=== PATIENT | female | born 1970 | race Two or more races ===

== ENCOUNTER 2023-03-25 09:00 | Outpatient (OUT) | payer OTHER, SELFPAY ==
--- NOTE | 2023-03-25 09:40 | CONS_ITS ---
CONSULTATION DATE: ??03/25/2023 TO:? Mike Alcaraz M.D. CHIEF COMPLAINT:? Includes bilateral buttock pain, hip pain. HISTORY:? She reports the pain as being 3-7/10, sharp/burning in character, increased with activities such as standing, walking and performing transitioning maneuvers. She feels most comfortable in the semi-recumbent position.? Denies any change in bowel and bladder habits or new sensorimotor changes in the lower extremities. EXAM:? Notable for patient having no clinical radiculopathy or myelopathy involving the lower extremities.? Patient had dysesthesia and hyperesthesia along the distribution of the lateral cutaneous branch of the iliohypogastric nerve, worse on the right than the left side, and severe myofascial spasm involving the gluteus medius muscle, worse on the right than the left side.? IMPRESSION:? 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 She has undergone a diagnostic injection of the lateral cutaneous branch of the iliohypogastric nerve under fluoroscopic guidance.?? She reports her pain was improved by 100% during the immediate post procedural period, lasting for several hours, with recurrence of pain back to her baseline.?? RECOMMENDATIONS:? I have recommended proceeding with a rhizotomy using radiofrequency ablation of the lateral cutaneous branch of the iliohypogastric nerve, starting on the right side initially, and proceeding with the contralateral side approximately one week later.? I have asked her to restart her baclofen as ordered previous visit.? As part of providing excellent, safe, comprehensive care, the following was completed at our patient's visit: 1. A medication reconciliation and review to ensure accurate knowledge of current/active medications, including asking our patients to inform us about any hiud-tbh-zblkblf medications or herbal remedies/nutritional supplements/alternative remedies. 2. A review to specifically ensure our patients have had annual screening for: elevated body mass index (BMI, see intake chart for exact total), tobacco use, screening for depression, and screening for unhealthy alcohol use.? When screening is concerning, patients are provided with education and the specific recommendation to discuss the concerning health issue and treatment options with their primary care provider. BEE
== END 2023-03-25 09:01 ==
PROVIDERS: PCP Nurse Practitioner Family; Visit Provider Anesthesiology Pain Medicine
DX: M25.552 Pain in left hip (principal); M25.551 Pain in right hip; G89.29 Other chronic pain; M79.18 Myalgia, other site
CPT/HCPCS: G0463

== ENCOUNTER 2023-08-20 09:31 | Outpatient (OUT) | payer OTHER, SELFPAY ==
[2023-08-20 09:51] LABS: Basophils Percent Auto 0.7 % (0.2-2.0); Eosinophils Absolute Auto 0.2 10^3/uL (0.0-0.7); Eosinophils Percent Auto 3.4 % (0.9-7.0); Hematocrit 41.6 % (36.0-48.0); Hemoglobin 13.4 g/dL (12.0-16.0); Immature Granulocytes Abs Auto 0.04 10^3/uL (0.00-0.03); Immature Granulocytes Pct Auto 0.7 % (0.0-0.5); Lymphocytes Absolute Auto 1.4 10^3/uL (1.2-3.8); Mean Corpuscular HGB Conc 32.2 g/dL (29.9-35.2); Mean Corpuscular Hemoglobin 29.4 pg (26.7-34.0); Mean Corpuscular Volume 91.2 fL (81.0-99.0); Mean Platelet Volume 10.4 fL (9.5-13.5); Monocytes Absolute Auto 0.4 10^3/uL (0.3-0.8); Monocytes Percent Auto 6.8 % (1.7-12.0); Neutrophils Percent Auto 65.4 % (43.0-75.0); Platelet Count 292 10^3/uL (150-450); Red Blood Count 4.56 10^6/uL (4.20-5.40); Red Cell Distribution Width 13.2 % (11.0-15.0); White Blood Count 6.1 10^3/uL (4.0-11.0)
[2023-08-20 10:30] LABS: Estimated Average Glucose 103 mg/dL; Glycohemoglobin A1C 5.2 % (4.5-6.2)
[2023-08-20 11:34] LABS: Alanine Aminotransferase 53 U/L (14-59); Albumin Globulin Ratio 1.1; Albumin Level 3.8 g/dL (3.4-5.0); Alkaline Phosphatase 76 U/L (46-116); Anion Gap 14.6; Aspartate Amino Transferase 35 U/L (15-37); BUN Creatinine Ratio 17.2; Bilirubin Total 0.4 mg/dL (0.2-1.0); Calcium 9.2 mg/dL (8.5-10.1); Carbon Dioxide 27.3 mmol/L (21.0-32.0); Chloride 104 mmol/L (98-107); Chol HDL Ratio 2.7; Cholesterol 197 mg/dL (<=200); Estimated GFR (African America >60 (>=60); Estimated GFR (Non-African Ame >60 (>=60); Free T3 2.72 pg/mL (2.18-3.98); Globulin 3.4 g/dL; Glucose 98 mg/dL (74-106); HDL Cholesterol 74 mg/dL (40-60); Potassium 3.9 mmol/L (3.5-5.1); Sodium 142 mmol/L (136-145); Thyroid Stimulating Hormone 1.469 uIU/mL (0.358-3.740); Total Protein 7.2 g/dL (6.4-8.2); Triglycerides 59 mg/dL (<=150); VLDL CHOLESTEROL 11.8 mg/dL
[2023-08-21 11:09] LABS: Insulin 17.4 uIU/mL (2.6-24.9)
== END 2023-08-20 09:32 | disposition home or self-care (01) ==
LOC: LAB 09:35
PROVIDERS: PCP Nurse Practitioner Family; Visit Provider Nurse Practitioner Family
DX: Z00.00 Encounter for general adult medical examination without abnormal findings (principal)
CPT/HCPCS: 36415; 80053; 80061; 82306; 83036; 83525; 83540; 84436; 84443; 84481; 85025

== ENCOUNTER 2023-10-11 10:45 | Emergency (ER) | payer OTHER, SELFPAY ==
[2023-10-11] VITALS (29 sets, daily range): BP systolic 124–173; BP diastolic 76–105; PULSE 73–107; RESP 15–33; TEMP 36.6; O2SAT 95–100; BMI 34.3
--- NOTE | 2023-10-11 11:15 | ED_ITS ---
HPI - Arrhythmia/Palpitations General Chief Complaint: Arrhythmia/Palpitations Stated Complaint: CHEST PAIN/TIGHTNESS Time Seen by Provider: 10/11/23 11:15 Source: patient Mode of arrival: walk-in Limitations: no limitations History of Present Illness HPI narrative: patient here for evaluation of a increase in her heart rate. She's got some monitoring devices at home and has been up as high as a hundred twenty-five but never any faster than that. She is on Adipex for weight loss since last January. She is also on lisinopril. She's not had a shortness of breath or dyspnea with exertion. No leg swelling no previous history of deep vein thrombosis pulmonary embolism or coronary disease. Does not have any heaviness or heartburn in her chest. She is not on any other stimulants such as cough medicines or other we ight loss pills. Denies tobacco use or illicit drug use. Not had a stress test done or Holter monitoring. Related Data Home Medications Medication Instructions Recorded Confirmed baclofen 10 mg tablet 10 mg PO BID 03/26/23 10/11/23 gabapentin 300 mg capsule 300 mg PO BID 03/26/23 10/11/23 lisinopril 10 mg tablet 20 mg PO DAILY 03/26/23 10/11/23 oxaprozin 600 mg tablet 600 mg PO BID 03/26/23 10/11/23 phentermine 37.5 mg capsule 37.5 mg PO DAILY 03/26/23 10/11/23 Allergies Allergy/AdvReac Type Severity Reaction Status Date / Time No Known Drug Allergies Allergy Verified 10/11/23 10:50 [facility] Social History Smoking status: Never smoker Exam Narrative Exam Narrative: awake alert well-hydrated well-nourished does not appear ill. Her skin is warm and dry not clammy or diaphoretic. Oxygen saturation one hundred percent blood pressure noted and her respiratory rates eighteen. Heart rate on her 12-lead EKG is ninety-three. Her EKG is noted bullosa sinus rhythm. Well-hydrated well-nourished no scleral icterus or evidence of pallor or anemia. Lungs are clear with no wheezes rales or rhonchi there is no cough or congestion Chest examination shows heart rate and rhythm be normal with no clicks rubs gallops or murmurs. Lower extremities do not have any evidence of edema , phlebitis ,swelling or tenderness. Constitutional Vital Signs, click to edit/add: Last Vital Signs Temp 97.8 F 10/11/23 10:50 Pulse 95 H 10/11/23 11:01 Resp 18 10/11/23 11:01 BP 153/91 H 10/11/23 11:01 Pulse Ox 100 10/11/23 11:01 O2 Del Method Room Air 10/11/23 10:50 Course Vital Signs Vital signs: Vital Signs Temperature 97.8 F 10/11/23 10:50 Pulse Rate 107 H 10/11/23 10:50 Respiratory Rate 18 10/11/23 10:50 Blood Pressure 173/105 H 10/11/23 10:50 Pulse Oximetry 100 10/11/23 10:50 Oxygen Delivery Method Room Air 10/11/23 10:50 Temperature 97.8 F 10/11/23 10:50 Pulse Rate 95 H 10/11/23 11:01 Respiratory Rate 18 10/11/23 11:01 Blood Pressure 153/91 H 10/11/23 11:01 Pulse Oximetry 100 10/11/23 11:01 Oxygen Delivery Method Room Air 10/11/23 10:50 MDM - Arrhythmia/Palpitations MDM Narrative Medical decision making narrative: this patient presents with history of tachycardia. Heart rate is been just below one hundred. Twelve-lead EKG showed sinus rhythm. Screening labs showed a negative d negative troponin.and a negative d-dimer. We did give her one dose of beta nataliia and she responded very nicely. I see no indication this is a cardiac problem.I have run a screening thyroid-stimulating hormone. Discharge Plan Discharge Chief Complaint: Arrhythmia/Palpitations Clinical Impression: Arrhythmia Patient Disposition: Home, Self-Care Time of Disposition Decision: 13:42 Prescriptions / Home Meds: No Action baclofen 10 mg tablet 10 mg PO BID Patient Comments: 1/2 - 1 tab bid gabapentin 300 mg capsule 300 mg PO BID lisinopril 10 mg tablet 20 mg PO DAILY phentermine 37.5 mg capsule 37.5 mg PO DAILY Rx Instructions: must administer 30 minutes before or 1-2 hours after breakfast oxaprozin 600 mg tablet 600 mg PO BID Additional Instructions: follow-up with Dr. Alcaraz as needed. We will call you a thyroid test is abnormal Stand Alone Forms: Portal Instructions Referrals: KACI BOSWELL [Primary Care Provider] - 1 week
--- NOTE | 2023-10-11 11:17 | ECG_ITS ---
[facility] Test Date: 2023-10-11 Pat Name: YAMILETH MEJIA Department: Room: - Gender: Female [employer]: : 1970 Requested By: KACI BOSWELL Order Number: [id number] Reading MD: NITESH TAVERAS Measurements Intervals [place] Rate: 93 P: 60 ID: [id number] QRS: 59 QRSD: 74 T: 42 QT: 356 QTc: 407 Interpretive Statements 1100 Sinus rhythm 9110 normal ECG No previous ECG available for comparison Electronically Signed On 10-12-2023 5:33:24 EST by NITESH TAVERAS
--- OUTSIDE RECORDS SUMMARY | 2023-10-11 11:20 | XMS_ITS | CCD ---
Author Name Unknown Address [address] [place] [id number] Organization [facility] Care Team Providers Care Community Outreach Coordinator Name Role Phone LAKSHMIPATHY ., NARENDRANATH Admitting Dotty vailable LAKSHMIPATHY ., NARENDRANATH Consulting Dotty vailable LAKSHMIPATHY ., NARENDRANATH Attending Dotty KACI Noriega Primary Care Unavailable KACI BOSWELL Attending Unavailable DR HUA GIRALDO Consulting Unavailable KACI BOSWELL Admitting Unavailable KACI BOSWELL Primary Care Unavailable KACI BOSWELL Consulting Unavailable LAKSHMIPATHY ., NARENDRANATH Admitting Dotty vailable LAKSHMIPATHY ., NARENDRANATH Consulting Dotty vailable LAKSHMIPATHY ., NARENDRANATH Attending Dotty KACI Noriega Primary Care Unavailable Problems Active Problems Problem Classification Problem Date Documented Date Episodic/Chronic Abdominal pain (4 sources) Unspecified abdominal pain; Translations: [UNSPECIFIED ABDOMINAL PAIN] Onset: 02-23-2023 Episodic Other connective tissue disease (1 source) Other muscle spasm; Translations: [OTHER MUSCLE SPASM] Onset: 02-11-2023 Episodic Other nervous system disorders (4 sources) Other specified mononeuropathies of bilateral lower limbs; Translations: [OTH SPEC MONONEUROPATH KATHERINE LOW LIMB] Onset: 03-02-2023 Chronic Other nervous system disorders (1 source) Other chronic pain; Translations: [OTHER CHRONIC PAIN] Onset: 02-11-2023 Chronic Other nervous system disorders (1 source) Other specified mononeuropathies; Translations: [OTHER SPECIFIED MONONEUROPATHIES] Onset: 02-11-2023 Chronic Spondylosis; intervertebral disc disorders; other back problems (1 source) Spondylosis without myelopathy or radiculopathy, lumbosacral region; Translations: [SPONDYLS W/O MYELO-/RADICULOP LS] Onset: 02-11-2023 Chronic Unclassified (2 sources) LOW BACK PAIN, UNSPECIFIED; Translations: [LOW BACK PAIN, UNSPECIFIED] Onset: 02-11-2023 Past or Other Problems Problem Classification Problem Date Documented Da te Episodic/Chronic Unclassified (1 source) LOW BACK PAIN, UNSPECIFIED; Translations: [LOW BACK PAIN, UNSPECIFIED] Onset: 02-04-2023 Results Test Name Value Interpretation Reference Range Facil ity PREG HCG QUALon 03-02-2023 , QUAL Negative Normal NEGATIVE [facility] Comment on above: Performed By: #### PREG #### [facility] [address] [address] [address] Noemi Rosario XR KUB 1 VIEWon 02-24-2023 XR KUB 1 VIEW EXAMINATION: XR KUB 1 VIEW HISTORY: Abdominal pain , left flank pain COMPARISON: No relevant comparison available. FINDINGS: KIDNEY/URETER - RIGHT: No visible renal or ureteral calcifications. KIDNEY/URETER - LEFT: No visible renal or ureteral calcifications. PELVIS: No visible ureteral stones. BOWEL: No abnormal dilation or deviation. BONES: No acute abnormality. OTHER: Negative. No abnormal gaseous collections. IMPRESSION: 1. No appreciable urinary tract calculi. 2. Normal bowel gas pattern. Electronically authenticated by: HUA GIRALDO Date: 2023-02-24 06:58 Normal [facility] Encounters Encounter Date Encounter Type Care Provider Facility Start: 03-02-2023 End: 03-02-2023 ambulatory NARENDBETTEATH LAKCARLOSMIPATHY . Facility:[facility] Start: 02-23-2023 End: 02-24-2023 ambulatory KACI BOSWELL Facility:[facility] Start: 02-04-2023 End: 02-05-2023 ambulatory NARENDRANATH LAKSHMIPATHY . Facility:[facility] Payers Date Payer Category Payer Unknown [id number] 2.16.84 [id number] 1970 Unknown [id number] [id number] [id number] 1970 Unknown [id number] 2.16.84 [id number] 1958 Self-pay [id number] 1958 Unknown [id number] Consultation note 02-04-2023 Note Date & Type Note Facility 02-04-2023 Note CONSULTATION CONSULTATION DATE: 02/04/2023 TO: Mike Alcaraz M.D. CHIEF COMPLAINT: Includes severe bilateral lower back pain, most on the right than the left side. HISTORY: She reports this pain started approximately two years ago. It occurred spontaneously and increased gradually to its present state, which she now complains of 5-7/10 pain, sharp in character, increased with activities such as standing, walking and performing transitioning maneuvers. She also reports that she has sensitivity to even light touch over her hip and buttock area, more significant on the right than the left side. She feels most comfortable in the semi-recumbent position. She denies any change in bowel and bladder habits or new sensorimotor changes in the lower extremities. EXAM: Her examination is notable for patient having no clinical radiculopathy or myelopathy involving her lower extremities. Patient did have dysesthesia and hypoesthesia overlying the distribution of the lateral cutaneous branch of the iliohypogastric nerve, more significant on the right than the left side. She has had significant myofascial spasm of the gluteus medius muscle, more significant on the right than the left side, and lastly pain with lumbar facet joint loading maneuvers occurring bilaterally at L4-5, L5-S1, with associated myofascial spasms of the lumbar paravertebral muscles. However, the pain she experienced with lumbar facet loading maneuvers was not as dramatic as the spasm that she has overlying the gluteus medius and the dysesthesia that she has overlying the distribution of the lateral cutaneous branch of the iliohypogastric nerve. 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 RECOMMENDATIONS: I have recommended the patient initiate aquatic therapy and obtain a lumbosacral spine films, PA and lateral views. I have placed the patient on baclofen 10 mg pills, half to one b.i.d. Aquatic therapy was ordered and to proceed with diagnostic injection of the lateral cutaneous branch of the iliohypogastric nerve under fluoroscopic guidance. She currently is on gabapentin 300 mg b.i.d. I have asked her to continue with the same, and lastly, her HOSSEIN was 27. As part of providing excellent, safe, comprehensive care, the following was completed at our patient's visit: 1. A medication reconciliation and review to ensure accurate knowledge of current/active medications, including asking our patients to inform us about any bjff-hid-szcllnu medications or herbal remedies/nutritional supplements/alternative remedies. 2. A review to specifically ensure our patients have had annual screening for: elevated body mass index (BMI, see intake chart for exact total), tobacco use, screening for depression, and screening for unhealthy alcohol use. When screening is concerning, patients are provided with education and the specific recommendation to discuss the concerning health issue and treatment options with their primary care provider. [facility] Summary Purpose Family History No Family History Records Found Advance Directives No Advanced Directives Records Found Additional Source Comments INFORMATION SOURCE (unrecogn ized section and content) DATE CREATED AUTHOR 03/12/2023 [facility] FOR RECORDS PERTAINING TO PATIENTS WHO ARE OR HAVE BEEN ENROLLED IN A CHEMICAL DEPENDENCY/SUBSTANCEABUSE PROGRAM, SOME INFORMATION MAY BE OMITTED. This clinical summary was aggregated from multiple sources. Caution should be exercised in using it in the provision of clinical care. This summary normalizes information from multiple sources, and as a consequence, information in this document may materially change the coding, format and clinical context of patient data. In addition, data may be omitted in some cases. CLINICAL DECISIONS SHOULD BE BASED ON THE PRIMARY CLINICAL RECORDS. [employer] provides no warranty or guarantee of the accuracy or completeness of information in this document.
[2023-10-11 11:46] LABS: Basophils Percent Auto 0.5 % (0.2-2.0); Eosinophils Absolute Auto 0.1 10^3/uL (0.0-0.7); Hematocrit 39.5 % (36.0-48.0); Hemoglobin 12.7 g/dL (12.0-16.0); Immature Granulocytes Abs Auto 0.03 10^3/uL (0.00-0.03); Immature Granulocytes Pct Auto 0.5 % (0.0-0.5); Lymphocytes Absolute Auto 1.4 10^3/uL (1.2-3.8); Lymphocytes Percent Auto 21.5 % (20.5-60.0); Mean Corpuscular HGB Conc 32.2 g/dL (29.9-35.2); Mean Corpuscular Hemoglobin 29.3 pg (26.7-34.0); Mean Corpuscular Volume 91.2 fL (81.0-99.0); Mean Platelet Volume 10.4 fL (9.5-13.5); Monocytes Absolute Auto 0.5 10^3/uL (0.3-0.8); Monocytes Percent Auto 6.8 % (1.7-12.0); Neutrophils Absolute Auto 4.6 10^3/uL (1.4-6.5); Neutrophils Percent Auto 68.7 % (43.0-75.0); Platelet Count 273 10^3/uL (150-450); Red Blood Count 4.33 10^6/uL (4.20-5.40); Red Cell Distribution Width 12.9 % (11.0-15.0); White Blood Count 6.7 10^3/uL (4.0-11.0)
[2023-10-11 11:59] LABS: Anion Gap 12.7; BUN Creatinine Ratio 19.8; Calcium 9.2 mg/dL (8.5-10.1); Carbon Dioxide 25.8 mmol/L (21.0-32.0); Chloride 106 mmol/L (98-107); Estimated GFR (African America >60 (>=60); Estimated GFR (Non-African Ame >60 (>=60); Glucose 97 mg/dL (74-106); Potassium 3.5 mmol/L (3.5-5.1); Sodium 141 mmol/L (136-145)
[2023-10-11 12:01] LABS: D Dimer 0.46 mg/L FEU (<=0.59)
[2023-10-11] MEDS: METOPROLOL TARTRATE 5 MG/5 ML VIAL IVP (12:47)
[2023-10-11 13:29] LABS: TSH W/ REFLEX FT4 2.029 uIU/mL (0.358-3.740)
== END 2023-10-11 14:08 | disposition home or self-care (01) ==
PROVIDERS: Emergency Provider Emergency Medicine Emergency Medical Services; PCP Nurse Practitioner Family
DX: I49.9 Cardiac arrhythmia, unspecified (principal); Z79.899 Other long term (current) drug therapy
CPT/HCPCS: 36415; 80048; 84443; 84484; 85025; 85378; 93005; 96374; 99284

== ENCOUNTER 2024-05-18 09:02 | Outpatient (OUT) | payer OTHER, SELFPAY ==
--- NOTE | 2024-05-18 09:06 | US_ITS ---
[address] [address] Patient Name: YAMILETH MEJIA MRN: [id number] date: 1970 Sex: F Assigned Patient Location: [place] Current Patient Location: [place] Accession/Order Number: [id number] Exam Date: 05/18/2024 09:08 Report Date: 05/18/2024 11:35 At the request of: NITESH TAVERAS Procedure: US carotid duplex BI DUPLEX ULTRASOUND EXAMINATION OF THE CAROTID ARTERIES. COMPARISON: None. HISTORY / INDICATIONS: Evaluate carotid stenosis. TECHNIQUE: Bilateral common carotid arteries, extracranial internal and external carotid arteries are evaluated with harper-scale imaging, color Doppler, and spectral analysis according to a standard protocol. ICA-CCA ratios are calculated with provider service representative peak-systolic velocities and recorded. Vertebral arteries are evaluated in one segment to evaluate for patency and character of flow. Comparison with previous evaluation is performed when available. Unless otherwise specified, all velocities are measured in cm/sec. Carotid stenosis is reported according to validated velocity parameters, similar to NASCET criteria. FINDINGS: Right Carotid: No significant plaque was noted. Velocity measurements as follows: Internal Carotid Artery 79/22, 64/28, and 69/33. ICA to CCA ratio: 1.1. Left Carotid: No significant plaque was noted. Velocity measurements as follows: Internal Carotid Artery 61/31, 84/38, and 81/31. ICA to CCA ratio: 1.0. Antegrade flow was seen in both vertebral arteries. Note is made of a 1.3 x 0.8 x 1.0 cm thyroid nodule. Recommend dedicated thyroid ultrasound for further evaluation. CONCLUSION: 1. Less than 20% stenosis of the right ICA. 2. Less than 20% stenosis of the left ICA. 3. Vertebral arteries are patent and demonstrate antegrade flow. Electronically authenticated by: Priti BANUELOS Date: 05/18/2024 11:35
--- OUTSIDE RECORDS SUMMARY | 2024-05-18 09:08 | XMS_ITS | CCD ---
Author Organization [facility] Care Team Providers Care Battery Hand Name Role Phone LAKSHMIPATHY ., NARENDRANATH Admitting Dotty vailable LAKSHMIPATHY ., NARENDRANATH Consulting Dotty vailable LAKSHMIPATHY ., NARENDRANATH Attending Dotty KACI Noriega Primary Care Unavailable KACI BOSWELL Attending Unavailable DR HUA GIRALDO Consulting Unavailable KACI BOSWELL Admitting Unavailable KACI BOSWELL Primary Care Unavailable KACI BOSWELL Consulting Unavailable LAKSHMIPATHY ., NARENDRANATH Admitting Dotty vailable LAKSHMIPATHY ., NARENDRANATH Consulting Dotty vailable LAKSHMIPATHY ., HANYENDRANATH Attending Dotty KACI Noriega Primary Care Unavailable [...] region; Translations: [SPONDYLS W/O MYELO-/RADICULOP LS] Onset: 05-11-2023 Chronic Unclassified (2 sources) LOW BACK PAIN, UNSPECIFIED; Translations: [LOW BACK PAIN, UNSPECIFIED] Onset: 02-11-2023 Past or Other Problems Problem Classification Problem Date Documented Da te Episodic/Chronic Unclassified (1 source) LOW BACK PAIN, UNSPECIFIED; Translations: [LOW BACK PAIN, UNSPECIFIED] Onset: 02-04-2023 Results Test Name Value Interpretation Reference Range Facil ity PREG HCG QUALon 03-02-2023 , QUAL Negative Normal NEGATIVE [facility] Comment on above: Performed By: #### PREG #### [facility] [address] [address] [address] Noemi Rosario XR KUB 1 VIEWon [...] HUA GIRALDO Date: 2023-02-24 06:58 Normal [facility] Encounters Encounter Date Encounter Type Care Provider Facility Start: 03-02-2023 End: 03-02-2023 ambulatory HANNA YAO . Facility:[facility] Start: 02-23-2023 End: 02-24-2023 ambulatory KACI BOSWELL Facility:[facility] Start: 02-04-2023 End: 02-05-2023 ambulatory HANNA MILANMILORIEY . Facility:[facility] Payers Date Payer Category Payer Unknown [id number] 2.16.84 [id number] 1970 Unknown [id number] 2.16.84 [id number] 1970 Unknown [id number] 2.16.84 [id number] 1958 Self-pay [id number] 1958 Unknown [id number] Consultation note 02-04-2023 Note Date & Type [...] our patients to inform us about any djbc-nik-hthqiho medications or herbal remedies/nutritional supplements/alternative remedies. 2. [...] options with their primary care provider. [facility] Summary Purpose Family History No Family History Records Found Advance Directives No Advanced Directives Records Found Additional Source Comments INFORMATION SOURCE (unrecogn ized section and content) DATE CREATED AUTHOR 03/12/2023 [facility] FOR RECORDS PERTAINING TO PATIENTS WHO ARE [...] BE BASED ON THE PRIMARY CLINICAL RECORDS. [employer] provides no warranty or guarantee of the accuracy or completeness of information in this document.
== END 2024-05-18 09:03 | disposition home or self-care (01) ==
LOC: US 09:02
PROVIDERS: PCP Nurse Practitioner Family; Visit Provider Family Medicine
DX: R53.1 Weakness (principal)
CPT/HCPCS: 93880